=== PATIENT | female | born 1985 | race Caucasian/White ===

== ENCOUNTER 2016-10-14 00:46 | Emergency (ER) | payer BC, OTHER ==
[~2016-10-14] VITALS: Ht 149.9 cm; Wt 54.4 kg
--- NOTE | ~2016-10-14 | EKG ---
[place] [address] [facility] [place] [address] ELECTROCARDIOGRAM REPORT Name: MINH PATEL 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: GALI : 1985 Requested By: [employer] Order Number: [id number] MD: Sergio Ashley Measurements Intervals [place] Rate: 94 P: 71 UT: 147 QRS: 71 QRSD: 83 T: 40 QT: 367 QTc: 459 Interpretive Statements Sinus rhythm Probable left atrial enlargement RSR' in V1 or V2, probably normal variant No previous ECG available for comparison Electronically Signed On 10-14-2016 9:02:19 [employer]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
[~2016-10-14 00:46] MED LIST: IBUPROFEN 600600 M1 PO; NOHOMEMEDICATIONS; ZPAK PO
[2016-10-14 00:58] LABS: URINE BILIRUBIN NEGATIVE (Negative); URINE BLOOD NEGATIVE (Negative); URINE COLOR YELLOW; URINE GLUCOSE-RANDOM* NEGATIVE (Negative); URINE KETONES NEGATIVE (Negative); URINE NITRITE NEGATIVE (Negative); URINE PROTEIN (DIPSTICK) NEGATIVE (Negative); URINE SPECIFIC GRAVITY 1.015 (1.003-1.035); URINE UROBILINOGEN 0.2 E.U./dl (0.2-1.0)
[2016-10-14] MEDS ORDERED: XANAX 0.25 MG0.25 MG PO (01:03)
[2016-10-14 01:17] VITALS: BP 116/75
[2016-10-14] MEDS ORDERED: VITAMIN D 5050000 I1 PO (01:21)
[2016-10-14] MEDS ORDERED: ASPIR 8181 MG PO (01:22)
== END 2016-10-14 01:51 | disposition home or self-care (01) ==
LOC: ER 00:46
PROVIDERS: Emergency Medicine
DX: R00.2 Palpitations (principal); F15.20 Other stimulant dependence, uncomplicated; Z88.1 Allergy status to other antibiotic agents